=== PATIENT | female | born 1990 | race Caucasian/White ===

== ENCOUNTER 2022-04-10 01:38 | Emergency (ER) | payer OTHER ==
[~2022-04-10 01:38] MED LIST: KEFLEX250 MG PO; ZOFRAN8 MG PO
[2022-04-10 02:21] LABS: BASOPHIL 0.3 % (0-2); EOSINOPHIL 2.9 % (0-5); HCT 39.5 % (37.0-47.0); HGB 13.5 g/dl (12.5-16.0); LYMPHOCYTE 41.1 % (15-48); MCH 30.5 pg (25.0-31.0); MCHC 34.2 g/dL (32.0-36.0); MCV 89.2 fL (78.0-100.0); MONOCYTE 7.9 % (0-12); MPV 10.3 fL (6.0-9.5); NEUTROPHIL 47.7 % (41-80); NRBC 0; PLT 228 K/uL (150-400); RBC 4.43 M/uL (4.20-5.40); RDW 12.1 % (11.5-14.0); WBC 6.9 K/uL (4.0-10.5)
[2022-04-10 02:34] LABS: ALBUMIN 4.2 g/dL (3.4-5.0); BILIRUBIN - TOTAL 0.7 mg/dL (0.2-1.0); BUN/CREAT RATIO (CALC) 20.8 RATIO; CREATININE 1.06 mg/dL (0.51-0.95); GLOBULIN (CALCULATION) 2.3 g/dL; POTASSIUM 4.3 mmol/L (3.5-5.1); TOTAL PROTEIN 6.5 g/dL (6.4-8.2)
[2022-04-10 02:57] LABS: CORONAVIRUS 2019 SARS-COV-2 NEGATIVE (NEGATIVE); INFLUENZA A NAA NEGATIVE (NEGATIVE)
[2022-04-10 03:06] LABS: BILIRUBIN NEGATIVE (NEGATIVE); BLOOD NEGATIVE Ery/uL (NEGATIVE); CLARITY CLEAR (CLEAR); COLOR YELLOW (YELLOW); GLUCOSE (U) NORMAL (NORMAL); LEUKOCYTES TRACE Leu/uL (NEGATIVE); NITRITE NEGATIVE (NEGATIVE); PROTEIN NEGATIVE (NEGATIVE); SPECIFIC GRAVITY >=1.030 (1.001-1.030); UROBILINOGEN 0.2 mg/dL (0.2-1.0)
[2022-04-10] MEDS ORDERED: MOTRIN600 MG PO (03:49)
[2022-04-10] MEDS ORDERED: PHENERGAN25 M1 PO (03:49)
[2022-04-10] MEDS ORDERED: ONDANSETRON ODT4 MG PO (03:49)
== END 2022-04-10 04:18 | disposition home or self-care (01) ==
LOC: FER 01:38
PROVIDERS: Internal Medicine
DX: R10.12 Left upper quadrant pain (principal); R11.0 Nausea; E03.9 Hypothyroidism, unspecified; F17.210 Nicotine dependence, cigarettes, uncomplicated; Z79.890 Hormone replacement therapy; Z20.822 Contact with and (suspected) exposure to COVID-19; Z28.310 Unvaccinated for COVID-19
CPT/HCPCS: 36415; 71250; 80053; 81001; 83690; 84145; 85025; J1885; J2405; U0002